=== PATIENT | female | born 1955 | race Two or more races ===

== ENCOUNTER 2018-12-21 07:32 | Inpatient (IN) | payer MEDICARE, OTHER ==
[~2018-12-21] VITALS: Ht 154.9 cm; Wt 56.3 kg
[2018-12-21] MEDS ORDERED: ONDANSETRON HCL 4MG/2ML INJ IV STA (07:59)
[2018-12-21] MEDS ORDERED: SODIUM CHLORIDE 0.9% 1000ML BAG (SEPSIS BOLUS) IV ONE (08:00)
[2018-12-21 08:27] LABS: BASOPHILS % 0.6 % (0.0-2.0); EOSINOPHILS % 0.7 % (0.0-5.0); HEMATOCRIT. 43.7 % (36.0-48.0); HEMOGLOBIN. 14.5 g/dL (12.0-16.0); LYMPHOCYTES % 17.3 % (20.0-50.0); MEAN CORPUSCULAR HEMOGLOBIN 28.7 pg (28.0-32.0); MEAN CORPUSCULAR VOLUME 86.4 fL (81.0-99.0); MEAN PLATELET VOLUME 8.4 fl (7.4-10.4); MONOCYTES % 4.6 % (2.0-8.0); NEUTROPHILS % 76.8 % (40.0-76.0); PLATELET 254 x1000/uL (130-400); RED BLOOD CELL COUNT 5.05 mill/uL (4.2-5.4); RED CELL DISTRIBUTION WIDTH 13.1 % (11.6-14.6)
[2018-12-21 08:35] LABS: CHLORIDE 103 mEq/L (98-107)
[2018-12-21 08:42] LABS: PARTIAL THROMBOPLASTIN TIME 22.9 sec (23.4-31.0); PROTHROMBIN TIME 10.4 sec (9.1-11.1)
[2018-12-21 08:55] LABS: BG BASE EXCESS -2.8 mmol/L (-2.0-2.0); BG CARBOXYHEMOGLOBIN 0.8 % (0.5-1.5); BG DEOXYHEMOGLOBIN 4.6 % (0.0-5.0); BG FRACTION INSPIRED OXYGEN 21; BG HCO3 ACT 22.2 mmol/L (22.0-26.0); BG METHEMOGLOBIN 0.3 % (0.0-1.5); BG OXYGEN SATURATION 95.3 % (92.0-98.5); BG OXYHEMOGLOBIN 94.3 % (94.0-97.0); BG PCO2 39.7 mmHg (35.0-45.0); BG PH 7.366 (7.350-7.450); BG PO2 80.7 mmHg (75.0-100.0); BG SAMPLE SITE RIGHT RADIAL; BG TOTAL HEMOGLOBIN 13.8 g/dL (12.0-18.0); BG VENT MODE ROOM AIR
[2018-12-21 09:12] LABS: CLARITY URINE CLOUDY (CLEAR); COLOR URINE YELLOW (YELLOW); KETONES URINE NEGATIVE (NEGATIVE); LEUKOCYTE ESTERASE URINE 3+ (NEGATIVE); NITRITE URINE NEGATIVE (NEGATIVE); OCCULT BLOOD URINE NEGATIVE (NEGATIVE); PROTEIN URINE NEGATIVE (NEGATIVE); SPECIFIC GRAVITY URINE 1.019 (1.005-1.030); UROBILINOGEN URINE 0.2 E.U./dL (0.2-1.0)
[2018-12-21] MEDS ORDERED: CEFTRIAXONE 1 G PREMIX 50 ML IV ONE (10:45)
[2018-12-21] MEDS ORDERED: LEVOFLOXACIN 500MG PREMIX 100 ML IV ONE (10:45)
[2018-12-21] MEDS ORDERED: MECLIZINE 25MG TABLET PO ONE (11:00)
[2018-12-21 12:55] VITALS: BP 120/69
[2018-12-21 13:25] VITALS: BP 120/75
[2018-12-21] MEDS ORDERED: MECLIZINE 25MG TABLET PO SCH (14:15)
[2018-12-21] MEDS ORDERED: SODIUM CHLORIDE 0.9% 1,000 ML IV SCH (14:15)
[2018-12-21] MEDS ORDERED: ONDANSETRON HCL 4MG/2ML INJ IV SCH (14:15)
[2018-12-21 16:59] VITALS: BP 120/71
[2018-12-21] MEDS ORDERED: HYDROCODONE/ACETAMINOPHEN 5/325MG TABLET PO PRN (17:15)
[2018-12-21] MEDS ORDERED: ONDANSETRON HCL 4MG/2ML INJ IV PRN (17:15)
[2018-12-21] MEDS ORDERED: ACETAMINOPHEN 325MG TABLET PO PRN (17:15)
[2018-12-21 20:00] VITALS: BP 101/48
[2018-12-21] MEDS: MECLIZINE 25MG TABLET PO SCH (20:57)
[2018-12-21] MEDS: SODIUM CHLORIDE 0.45% 1,000 ML IV SCH (20:57)
[2018-12-21] MEDS ORDERED: CLONIDINE 0.1MG TABLET PO SCH (22:00)
[2018-12-21] MEDS ORDERED: CLONIDINE 0.1MG TABLET PO PRN (22:00)
[2018-12-22 00:05] VITALS: BP 92/54
[2018-12-22] MEDS: SODIUM CHLORIDE 0.45% 1,000 ML IV SCH ×3 (03:00→17:15)
[2018-12-22 04:00] VITALS: BP_SYST 107; BP_SYST 112; BP_DIAS 56; BP_DIAS 57
[2018-12-22 08:00] VITALS: BP 107/68
[2018-12-22] MEDS: MECLIZINE 25MG TABLET PO SCH ×4 (09:14→23:25)
[2018-12-22] MEDS ORDERED: LORAZEPAM 2MG/ML CPJ IV SCH (10:00)
[2018-12-22] MEDS: LEVOFLOXACIN 500MG PREMIX 100 ML IV SCH (11:36)
[2018-12-22 12:00] VITALS: BP 98/74
[2018-12-22] MEDS ORDERED: HYDROCHLOROTHIAZIDE 12.5MG CAPSULE PO SCH (13:00)
[2018-12-22 16:00] VITALS: BP_SYST 133; BP_SYST 137; BP_DIAS 73; BP_DIAS 77
[2018-12-22 20:07] VITALS: BP_SYST 102; BP_SYST 112; BP_SYST 128; BP_DIAS 66; BP_DIAS 75; BP_DIAS 83
[2018-12-23 00:07] VITALS: BP 107/65
[2018-12-23] MEDS: SODIUM CHLORIDE 0.45% 1,000 ML IV SCH (00:31)
[2018-12-23 04:00] VITALS: BP 110/64
[2018-12-23] MEDS: MECLIZINE 25MG TABLET PO SCH ×2 (05:23→11:24)
[2018-12-23 08:00] VITALS: BP 121/70
[2018-12-23] MEDS: LEVOFLOXACIN 500MG PREMIX 100 ML IV SCH (11:00)
[2018-12-23 12:00] VITALS: BP 128/69
== END 2018-12-23 12:37 | disposition left against medical advice (07) | DRG 52 ==
LOC: ER 07:32 → 7WST 08:26 → EDBEDREQ 09:34 → EDBEDREQSVC 09:34 → ENRESERV 10:56
PROVIDERS: ADMIT Internal Medicine; ATTEND Internal Medicine
DX: G92 Toxic encephalopathy (principal); E78.00 Pure hypercholesterolemia, unspecified; H81.10 Benign paroxysmal vertigo, unspecified ear; R06.00 Dyspnea, unspecified; Z53.21 Procedure and treatment not carried out due to patient leaving prior to being seen by health care provider
CPT/HCPCS: 36415; 36600; 70551; 71045; 82375; 82805; 82962; 83605; 83735; 83880; 84145; 84484; 86850; 86900; 87804; 93005; 96361; 96374; 96375; 99285; J0696; J1956; J2060; J2405; J7030; J7040; J8597